=== PATIENT | male | born 1965 | race Caucasian/White ===

== ENCOUNTER → 2017-07-30 | Outpatient (CLI) | payer BC, OTHER ==
[~2017-07-30] MED LIST: ALPR.5T PO; ATRV10T PO; BENA5TAB PO
--- NOTE | 2017-07-30 14:30 | Diagnostic Imaging Report ---
INDICATION: Left rib injury. FINDINGS: Three views of the left ribs show a nondisplaced fracture of the left lateral 10th rib. There is no effusion or pneumothorax. IMPRESSION: Nondisplaced fracture of the left lateral 10th rib. Dictated by: Dictated on workstation # [id number]
== END ==
LOC: RAD 14:03
PROVIDERS: ATTEND Family Medicine
DX: S22.32XA Fracture of one rib, left side, initial encounter for closed fracture (principal)
CPT/HCPCS: 71100

== ENCOUNTER 2017-08-16 05:48 | Outpatient (CLI) | payer BC, OTHER ==
[~2017-08-16] VITALS: Ht 170.2 cm; Wt 61.7 kg
[2017-08-16] MEDS ORDERED: FLUT9.9S NS (11:05)
[2017-08-16] MEDS ORDERED: HYDR25TA4 PO (11:05)
[2017-08-16] MEDS ORDERED: ATOR10TA66 PO (11:05)
[2017-08-16] MEDS ORDERED: CALC250T2 PO (11:05)
[2017-08-16] MEDS ORDERED: ALPR0.5T7 PO (11:05)
== END 2017-08-16 11:09 ==
LOC: PREOP 05:48
PROVIDERS: ATTEND Surgery
DX: Z01.818 Encounter for other preprocedural examination (principal); K62.5 Hemorrhage of anus and rectum

== ENCOUNTER 2017-08-23 07:19 | Day surgery (SDC) | payer BC, OTHER ==
[~2017-08-23] VITALS: Ht 170.2 cm; Wt 61.7 kg
[~2017-08-23 07:19] MED LIST changes: +ALPR0.5T7 PO; +ATOR10TA66 PO; +CALC250T2 PO; +FLUT9.9S NS; +HYDR25TA4 PO
--- OUTSIDE RECORDS SUMMARY | 2017-08-23 07:22 | XMS REPORT | Continuity of Care Document ---
Author Author [facility] Organization [facility] Address Unknown Phone Unavailable Allergies Active Description Code Type Severity Reaction Onset Reported/Identified Relationship to Patient Clinical Status Yes No Known Drug Allergies [id number] Drug Allergy Unknown N/A 08/16/2017 Medications There is no data. Problems Date Dx Coded Attending Type Code Diagnosis Diagnosed By 03/14/2012 Ot 592.0 CALCULUS OF KIDNEY 03/14/2012 Ot 592.1 CALCULUS OF URETER 03/14/2012 Ot 733.99 BONE CARTILAGE DIS NEC 03/14/2012 Ot 789.00 ABDOMINAL PAIN, UNSPECIFIED SITE 03/23/2012 Ot 592.0 CALCULUS OF KIDNEY 03/23/2012 Ot 592.1 CALCULUS OF URETER 03/30/2012 Ot 592.0 CALCULUS OF KIDNEY 07/12/2012 Ot 592.9 URINARY CALCULUS NOS 07/23/2014 VANDA SMITH, NASIMA Hanson Ot 272.4 07/23/2014 VANDA SMITH, NASIMA Hanson Ot 592.9 07/23/2014 VANDA SMITH, NASIMA Hanson Ot 600.00 09/20/2014 NASIMA DC MD Ot 272.4 HYPERLIPIDEMIA NEC/NOS 09/20/2014 VANDA SMITH, NASIMA Hanson Ot 592.9 URINARY CALCULUS NOS 09/20/2014 VANDA SMITH, NASIMA Hanson Ot 600.00 HYPERTROPHY (BENIGN) OF PROSTATE W/O URI 07/30/2017 Ot 592.0 CALCULUS OF KIDNEY 07/30/2017 Ot 592.0 CALCULUS OF KIDNEY 07/30/2017 Ot 592.1 CALCULUS OF URETER 07/30/2017 Ot V72.83 EXAM PRE- OPERATIVE NEC 07/30/2017 Ot V74.8 SCREEN- BACTERIAL DIS NEC 07/30/2017 Ot 592.0 CALCULUS OF KIDNEY 07/30/2017 Ot V45.89 POSTSURGICAL STATES NEC 07/30/2017 Ot 592.9 URINARY CALCULUS NOS 07/30/2017 NASIMA DC MD Ot 272.4 HYPERLIPIDEMIA NEC/NOS 07/30/2017 NASIMA DC MD Ot 592.9 URINARY CALCULUS NOS 07/30/2017 NASIMA DC MD Ot 600.00 HYPERTROPHY (BENIGN) OF PROSTATE W/O URI 08/06/2017 STEPHAN MASON DO Ot S22.32XA FRACTURE OF ONE RIB, LEFT SIDE, INIT FOR 08/16/2017 Ot 592.9 URINARY CALCULUS NOS 08/16/2017 NASIMA DC MD Ot 272.4 HYPERLIPIDEMIA NEC/NOS 08/16/2017 NASIMA DC MD Ot 592.9 URINARY CALCULUS NOS 08/16/2017 NASIMA DC MD Ot 600.00 HYPERTROPHY (BENIGN) OF PROSTATE W/O URI 08/19/2017 DON JESSICA MD Ot K62.5 HEMORRHAGE OF ANUS AND RECTUM 08/19/2017 DON JESSICA MD Ot Z01.818 ENCOUNTER FOR OTHER PREPROCEDURAL EXAMIN 08/20/2017 ISABELLA STEPHAN LAGUNAS Margie Ot S22.32XA FRACTURE OF ONE RIB, LEFT SIDE, INIT FOR Procedures There is no data. Results There is no data. Encounters ACCT No. Visit Date/Time Discharge Status Pt. Type Provider Facility Loc./Unit Complaint [id number] 08/16/2017 05:48:00 08/16/2017 11:09:00 DIS Outpatient DON JESSICA MD [facility] PREOP COLONOSCOPY [id number] 07/30/2017 14:03:00 07/30/2017 23:59:59 CLS Outpatient ISABELLA STEPHAN LAGUNAS [facility] RAD CONTUSION OF LT RIBS [id number] 09/21/2014 00:32:00 09/21/2014 23:59:59 CLS Preadmit NASIMA DC MD [facility] RAD STONES [id number] 06/22/2014 10:45:00 09/20/2014 00:01:00 DIS Outpatient NASIMA DC MD [facility] RAD STONES [id number] 08/23/2017 11:30:00 PEN Preadmit DON JESSICA MD [facility] ENDO RECTAL BLEEDING [id number] 07/13/2012 00:00:00 Document Registration [id number] 04/19/2012 07:43:00 Document Registration [id number] 04/12/2012 15:04:00 Document Registration [id number] 03/30/2012 09:09:00 Document Registration [id number] 03/23/2012 05:45:00 Document Registration [id number] 03/22/2012 11:59:00 Document Registration [id number] 03/22/2012 09:12:00 Document Registration [id number] 03/14/2012 07:12:00 Document Registration
[2017-08-23] MEDS ORDERED: NS IV 500 ML 500 ML ONE (07:42)
[2017-08-23] MEDS ORDERED: NS IV 500 ML 500 ML IV PRN (07:56)
[2017-08-23 08:04] VITALS: BP 122/78
--- NOTE | 2017-08-23 09:31 | History & Physicial ---
History of Present Illness History of Present Illness Reason for visit/HPI to undergo colonoscopy to investigate rectal bleeding. Date of Admission 08/23/17 Date Seen by Provider: Aug 23, 2017 Time Seen by Provider: 09:28 I consulted on this patient on 08/23/17 09:28 Attending Physician Don Jessica MD Admitting Physician Juan A Torres DO Consult Allergies and Home Medications Allergies Coded Allergies: No Known Drug Allergies (Unverified , 08/16/17) Home Medications Alprazolam 0.5 Mg Tablet, 0.5 MG PO PRN, (Reported) Atorvastatin Calcium 10 Mg Tablet, 10 MG PO HS, (Reported) Calcium Citrate 250 Mg Tablet, 250 MG PO DAILY, (Reported) Fluticasone Propionate 9.9 Ml [place].susp, 1 SPRAY NS DAILY, (Reported) Hydrochlorothiazide 25 Mg Tablet, 25 MG PO DAILY, (Reported) Past Fzbhdbf-Ekrssy-Ykouwh Hx Patient Social History Marrital Status: Employed/Student: unemployed Alcohol Use: Denies Use Recreational Drug Use: No Smoking Status: Current Everyday Smoker Type Used: Cigars Recent Foreign Travel: No Contact w/other who traveled: No Recent Hopitalizations: No Recent Infectious Disease Expo: No Immunizations Up To Date Tetanus Booster (TDap): Unknown Date of Influenza Vaccine: Jul 07, 2011 Seasonal Allergies Seasonal Allergies: No Surgeries Yes Tonsillectomy Respiratory No Currently Using CPAP: No Currently Using BIPAP: No Cardiovascular Yes High Cholesterol, Hypertension Neurological No Reproductive System Hx Reproductive Disorders: No Sexually Transmitted Disease: No HIV/AIDS: No Genitourinary Yes Kidney Stones Gastrointestinal Yes Gastroesophageal Reflux Musculoskeletal No Endocrine History of Endocrine Disorders: No HEENT Loss of Vision: Denies Hearing Impairment: Denies Cancer No Psychosocial History of Psychiatric Problem: Yes Behavioral Health Disorders: Anxiety Blood Transfusions Adverse Reaction to a Blood Tr: No (N/A) Constitutional: no symptoms reported EENTM: no symptoms reported Respiratory: no symptoms reported Cardiovascular: no symptoms reported Gastrointestinal: see HPI Genitourinary: no symptoms reported Musculoskeletal: no symptoms reported Skin: no symptoms reported Psychiatric/Neurological: Anxiety Physical Exam Vital Signs Vital Sign - Last 12Hours 08/23/17 08:04 Temp 96.8 Pulse 70 Resp 18 B/P (MAP) 122/78 (93) Pulse Ox 99 O2 Delivery Room Air Capillary Refill : General Appearance: Anxious HEENT: Normal ENT Inspection Neck: Normal Inspection Respiratory: Lungs Clear Cardiovascular: Regular Rate, Rhythm Gastrointestinal: Non Tender Rectal: Deferred Back: Normal Inspection Extremity: Normal Inspection Neurologic/Psychiatric: Oriented x3 Assessment/Plan Assessment and Plan gentleman with a history of rectal bleeding. For colonoscopy Problems: DON JESSICA MD Aug 23, 2017 9:31 am
--- NOTE | 2017-08-23 09:31 | Conscious Sedation/ASA ---
Conscious Sedation Pre-Proced Time Reviewed: :31 ASA Class: 2 Airway Mallampati Classification: ([place] appropriate class) I. II. III, IV Lungs Heart ASA score ASA 1: a normal healthy patient ASA 2: a patient with a mild systemic disease (mid diabetes, controlled hypertension, obesity ASA 3: a patient with a severe systemic disease that limits activity (angina , COPD, prior Myocardial infarction) ASA 4: a patient with an incapacitating disease that is a constant threat to life (CHF, renal failure) ASA 5: a moribund patient not expected to survive 24 hrs. (ruptured aneurysm) ASA 6: a declared brain patient whose organs are being harvested. For emergent operations, add the letter E after the classification Grade 1 Sedation Plan: Discussed options with patient/fam Note The patient is an appropriate candidate to undergo the planned procedure, sedation, and anesthesia. The patient immediately re-assessed prior to indication. DON JESSICA MD Aug 23, 2017 9:31 am
[2017-08-23] MEDS ORDERED: MIDAZOLAM 2 MG/2 ML (VERSED) VIAL ONE ×4 (09:51→09:52)
[2017-08-23] MEDS ORDERED: fentaNYL INJECTION 100 MCG/2 ML AMP ONE (09:51)
[2017-08-23] MEDS: MIDAZOLAM 2 MG/2 ML (VERSED) VIAL IVP PRN ×4 (09:54→10:00)
[2017-08-23] MEDS: fentaNYL INJECTION 100 MCG/2 ML AMP IVP PRN ×2 (09:55→09:57)
--- NOTE | 2017-08-23 10:14 | Endo Procedure Record ---
Endo Procedure Report Date of Procedure Aug 23, 2017 Surgeon (s) ODN JESSICA MD Post Procedure/Op Diagnosis 1.3 mm polyp at the proximal rectum 2. 1 mm sessile polyp proximal rectum, adjacent to the previously noted polyp Procedure Performed colonoscopy to cecum Snare polypectomy 1 Hot biopsy polypectomy 1 Description of Procedure Anesthesia Type: Conscious Sedation Specimen(s) collected/removed rectal polyps 2 Description of the Procedure indication for the procedure: This gentleman came in for colonoscopy to investigate ongoing rectal bleeding. Informed consent was obtained after reviewing the procedure in detail. Description of procedure: She was placed in left lateral decubitus position and his vital signs were monitored. Conscious sedation was achieved using Versed and fentanyl. Digital rectal examination was unremarkable. The colonoscope was then introduced into the rectum and advanced all the way up to the cecum The quality of bowel preparation was excellent. The scope was then withdrawn slowly and the mucosa examined in a systematic fashion. Findings: 1. 3 mm pedunculated polyp at the proximal rectum, it was snared and retrieved 2. 1 mm sessile polyp at the proximal rectum adjacent to polyp number 1, that was managed by hot biopsy technique. He tolerated the procedure well and was taken back to the nursing area in a stable condition. Impression rectal bleeding. Rectal polyps excised. Recommend repeating in 2 years. DON JESSICA MD Aug 23, 2017 10:14 am
--- NOTE | 2017-08-23 10:15 | Discharge Inst-Simple/Standard ---
Discharge Inst-Standard Discharge Medications New, Converted or Re-Newed RX: Other Patient Instructions/Follow Up Plan of Care/Instructions/FU: repeat colonoscopy in 2 years. Activity as Tolerated: Yes Discharge Diet: No Restrictions DON JESSICA MD Aug 23, 2017 10:15 am
[2017-08-23 10:35] VITALS: BP 132/91
[2017-08-23 11:05] VITALS: BP 132/91
[2017-08-23 11:30] VITALS: BP 132/91
== END 2017-08-23 11:30 | disposition home or self-care (01) ==
LOC: ENDO 07:19
PROVIDERS: ATTEND Surgery
DX: D12.8 Benign neoplasm of rectum (principal); K63.5 Polyp of colon; Z79.899 Other long term (current) drug therapy; F17.210 Nicotine dependence, cigarettes, uncomplicated; E78.00 Pure hypercholesterolemia, unspecified; I10 Essential (primary) hypertension; K21.9 Gastro-esophageal reflux disease without esophagitis; F41.9 Anxiety disorder, unspecified

== ENCOUNTER → 2019-06-14 | Outpatient (CLI) | payer BC, OTHER ==
[~2019-06-14] MED LIST changes: +DIATRIZOATE 30% 300 ML (CYSTOGRAFIN) VIAL UR ONE
--- NOTE | 2019-06-14 11:55 | Diagnostic Imaging Report ---
Fluoroscopy time: 34 seconds. INDICATION: Penile lesions. The study is performed to evaluate for urethral fistulas. Patient was brought to the fluoroscopic suite and placed on table in the supine position. Cystografin contrast was utilized. Contrast was injected in a retrograde fashion through the urethral meatus and spot radiographs were obtained over the pelvis. Anterior urethra is well opacified. No abnormal fistulous tracts are detected. No urethral stricture or mass is seen. IMPRESSION: Unremarkable urethrogram. Dictated by: Dictated on workstation # [id number]
== END ==
LOC: RAD 10:42
PROVIDERS: ATTEND Urology
DX: N50.89 Other specified disorders of the male genital organs (principal)
CPT/HCPCS: 74450

== ENCOUNTER → 2020-04-09 | Outpatient (CLI) | payer BC, OTHER ==
[~2020-04-09] MED LIST changes: -DIATRIZOATE 30% 300 ML (CYSTOGRAFIN) VIAL UR ONE
== END ==
LOC: LAB 11:00
PROVIDERS: ATTEND Urology
DX: N40.0 Benign prostatic hyperplasia without lower urinary tract symptoms (principal); E29.1 Testicular hypofunction; N20.9 Urinary calculus, unspecified

== ENCOUNTER → 2020-04-09 | Outpatient (CLI) | payer BC, OTHER ==
[2020-04-09 11:27] LABS: BASOPHILS % (AUTO) 1 % (0-10); EOSINOPHILS # (AUTO) 0.3 10^3/uL (0.0-0.3); EOSINOPHILS % (AUTO) 5 % (0-10); HEMATOCRIT 46 % (40-54); HEMOGLOBIN 15.3 G/DL (13.3-17.7); LYMPHOCYTES # (AUTO) 2.5 X 10^3 (1.0-4.0); LYMPHOCYTES % (AUTO) 42 % (12-44); MEAN CORPUSCULAR HEMOGLOBIN 30 PG (25-34); MEAN CORPUSCULAR HGB CONC 34 G/DL (32-36); MEAN CORPUSCULAR VOLUME 89 FL (80-99); MEAN PLATELET VOLUME 10.2 FL (7.4-10.4); MONOCYTES # (AUTO) 0.5 X 10^3 (0.0-1.0); MONOCYTES % (AUTO) 9 % (0-12); NEUTROPHILS # (AUTO) 2.5 X 10^3 (1.8-7.8); NEUTROPHILS % (AUTO) 43 % (42-75); PLATELET COUNT 217 10^3/uL (130-400); RED CELL DISTRIBUTION WIDTH 12.9 % (10.0-14.5); WHITE BLOOD COUNT 5.9 10^3/uL (4.3-11.0)
[2020-04-09 11:42] LABS: ALANINE AMINOTRANSFERASE 17 U/L (0-55); ALBUMIN 4.7 GM/DL (3.2-4.5); ALKALINE PHOSPHATASE 54 U/L (40-136); BILIRUBIN,TOTAL 0.8 MG/DL (0.1-1.0); BUN/CREATININE RATIO 21; CALCIUM 9.6 MG/DL (8.5-10.1); CARBON DIOXIDE 27 MMOL/L (21-32); CHLORIDE 106 MMOL/L (98-107); CHOLESTEROL 244 MG/DL (< 200); CREATININE SERUM 0.98 MG/DL (0.60-1.30); GFR ESTIMATED > 60; GLUCOSE 105 MG/DL (70-105); HDL CHOLESTEROL 82 MG/DL (40-60); PHOSPHORUS 3.3 MG/DL (2.3-4.7); SODIUM 140 MMOL/L (135-145); TOTAL PROTEIN 7.6 GM/DL (6.4-8.2); TRIGLYCERIDES 62 MG/DL (<150); URIC ACID 6.1 MG/DL (2.6-7.2); VLDL CHOLESTEROL 12 MG/DL (5-40)
== END ==
LOC: LAB 11:02
PROVIDERS: ATTEND Student in an Organized Health Care Education/Training Program
DX: I10 Essential (primary) hypertension (principal); E78.2 Mixed hyperlipidemia; N40.0 Benign prostatic hyperplasia without lower urinary tract symptoms; N20.9 Urinary calculus, unspecified; E29.1 Testicular hypofunction
CPT/HCPCS: 36415; 80053; 80061; 83036; 84100; 84153; 84550; 85025

== ENCOUNTER → 2022-09-23 | Outpatient (CLI) | payer BC, OTHER | LOC: LAB 11:27 | PROVIDERS: ATTEND Nurse Practitioner | DX: E78.5 Hyperlipidemia, unspecified (principal); R93.1 Abnormal findings on diagnostic imaging of heart and coronary circulation | CPT/HCPCS: 36415; 83036 ==

== ENCOUNTER 2023-02-24 05:34 | Outpatient (CLI) | payer BC ==
[~2023-02-24] VITALS: Ht 170.2 cm; Wt 62.6 kg
[2023-02-24] MEDS ORDERED: ASPI-1238 PO (10:10)
== END 2023-02-24 10:17 | disposition home or self-care (01) ==
LOC: PREOP 05:34
PROVIDERS: ATTEND Internal Medicine
DX: Z01.818 Encounter for other preprocedural examination (principal)

== ENCOUNTER 2023-03-05 07:13 | Day surgery (SDC) | payer BC ==
[~2023-03-05] VITALS: Ht 170.2 cm; Wt 62.6 kg
[~2023-03-05 07:13] MED LIST changes: +ASPI-1238 PO
[2023-03-05] MEDS ORDERED: LACTATED RINGERS 1,000 ML IV STA (07:16)
[2023-03-05 07:28] VITALS: BP 140/100
[2023-03-05] MEDS ORDERED: PROPOFOL INJECTION 50 ML IV ONE (07:47)
--- NOTE | 2023-03-05 07:57 | Pre-Op Note & Conscious Sedat ---
Pre-Operative Progress Note Date H&P Reviewed: Mar 05, 2023 Time H&P Reviewed: 07:56 History & Physical: H&P Reviewed, Patient Examed, No changes noted Pre-Op Diagnosis: history of colon polyps Moderate Sedation PreProcedure ASA Score 2 Airway Lungs Heart ASA score ASA 1: a normal healthy patient ASA 2: a patient with a mild systemic disease (mid diabetes, controlled hypertension, obesity ASA 3: a patient with a severe systemic disease that limits activity (angina, COPD, prior Myocardial infarction) ASA 4: a patient with an incapacitating disease that is a constant threat to life (CHF, renal failure) ASA 5: a moribund patient not expected to survive 24 hrs. (ruptured aneurysm) ASA 6: a declared brain- patient whose organs are being harvested. For emergent operations, add the letter E after the classification Mallampati Classification Grade 1 Sedation Plan Analgesia, Amnesia, Plan communicated to team members, Discussed options with patient/fam, Discussed risks with patient/fam The patient is an appropriate candidate to undergo the planned procedure, sedation, and anesthesia. The patient immediately re-assessed prior to indication. BREA HSIEH MD Mar 05, 2023 07:56
--- NOTE | 2023-03-05 08:26 | Anesthesia-General Post-Op ---
MAC Patient Condition Mental Status/LOC: Same as Preop Cardiovascular: Satisfactory Nausea/Vomiting: Absent Respiratory: Satisfactory Pain: Controlled Complications: Absent Post Op Complications Complications None Follow Up Care/Instructions Patient Instructions None needed. Anesthesiology Discharge Order Discharge Order Patient is doing well, no complaints, stable vital signs, no apparent adverse anesthesia problems. No complications reported per nursing. GENEVIEVE HANNON CRNA Mar 05, 2023 08:26
--- NOTE | 2023-03-05 08:29 | Progress Note-Post Operative ---
Post-Procedure Note Physician (s)/Lithopone Charger (s) Physician BREA HSIEH MD Pre-Procedure Diagnosis Pre-Procedure Diagnosis: history of colon polyps Post-Procedure Diagnosis Post-operative diagnosis: Prior to undergoing colonoscopy digital rectal evaluation was performed. Anal sphincter tone was normal and the perianal reflexes intact. Prostate is normal in size and a nodular on digital inspection. No abnormalities noted on digital inspection anal canal or distal rectal vault. The colonoscope was then inserted into the rectum and under direct visualization advanced to the cecum. The cecum was identified by the indication of the Ileocecal valve cecal strap. Photographic documentation was obtained. Careful suction was made as the colonoscope was withdrawn. Quality the prep was good. Findings: There are no evidence for external hemorrhoids several small grade 1 internal hemorrhoid complexes were noted. No other rectal abnormalities are appreciated. A hyperplastic appearing 4 mm sessile polyp was noted in the distal sigmoid colon it was photographed and biopsied and ablated with no subsequent blood loss with hot forceps. The remainder of the sigmoid colon descending colon splenic flexure transverse colon hepatic flexure ascending colon and cecum were unremarkable. A/P 1. 1 diminutive hyperplastic Appearing polyp was removed via hot forceps from the distal sigmoid colon with no other evidence for neoplasia. Prostate was unremarkable on digital inspection and several grade 1 internal hemorrhoid complexes were noted with no other abnormalities being appreciated on today's procedure. As long as there are no surprises on histopathology report we will advocate consideration for repeat screening colonoscopy in 10 years. BREA HSIEH MD Mar 05, 2023 08:29
[2023-03-05 08:30] VITALS: BP 99/73
[2023-03-05 08:35] VITALS: BP 115/75
[2023-03-05 08:37] VITALS: BP 115/75
[2023-03-05 08:38] VITALS: BP 123/85
[2023-03-05 08:59] VITALS: BP 105/80
== END 2023-03-05 09:10 | disposition home or self-care (01) ==
LOC: ENDO 07:13
PROVIDERS: ATTEND Internal Medicine
DX: K63.5 Polyp of colon (principal); K64.0 First degree hemorrhoids; F17.200 Nicotine dependence, unspecified, uncomplicated